=== PATIENT | female | born 1950 | race Caucasian/White ===

== ENCOUNTER → 2016-05-04 | Outpatient (CLI) | payer OTHER | LOC: CIMAGING 10:03 | DX: Z12.31 Encounter for screening mammogram for malignant neoplasm of breast (principal) | CPT/HCPCS: G0202 ==

== ENCOUNTER → 2016-05-06 | Outpatient (CLI) | payer OTHER | LOC: CIMAGING 13:12 | DX: R92.2 Inconclusive mammogram (principal) | CPT/HCPCS: G0206 ==

== ENCOUNTER → 2017-05-30 | Outpatient (CLI) | payer OTHER | LOC: CIMAGING 08:56 | PROVIDERS: ATTEND Family Medicine | DX: Z12.31 Encounter for screening mammogram for malignant neoplasm of breast (principal) ==